=== PATIENT | male | born 1965 | race African-American/Black ===

== ENCOUNTER 2016-10-04 10:10 | Day surgery (SDC) | payer OTHER ==
[~2016-10-04] VITALS: Ht 180.3 cm; Wt 92.0 kg
[2016-10-04 11:16] VITALS: Ht 180.3 cm; Wt 92.0 kg
[2016-10-04 11:40] VITALS: BP 122/71; PULSE 58; RESP 18
[2016-10-04] MEDS ORDERED: MIDAZOLAM 1 MG/ML 2 ML INJ ONE ×2 (12:08)
[2016-10-04] MEDS ORDERED: FENTAnyl 50 MCG/ML VIAL ONE (12:08)
[2016-10-04 12:40] VITALS: BP 112/66; PULSE 91; RESP 20
--- NOTE | 2016-10-05 03:44 | GILP ---
DATE OF PROCEDURE: 10/04/2016 NAME OF PROCEDURE: Colonoscopy. SURGEON: Alcira Romero MD PREOPERATIVE DIAGNOSIS: Screening colonoscopy. POSTOPERATIVE DIAGNOSES: 1. Colonoscopy all the way to the cecum. 2. Internal hemorrhoids. 3. No colon neoplasm was identified. INDICATION FOR THE PROCEDURE: Mr. Arturo Aviles is a 51-year-old male patient who was schedul ed for screening colonoscopy. The procedure and possible complications were well explained to the patient. The patient understood and consented to the procedure. DESCRIPTION OF PROCEDURE: Under the influence of fentanyl and Versed, the colonoscope was carefully introduced in the rectum, and under direct vision, it was advanced all the way to the cecum. FINDINGS: The patient had internal hemorrhoids. No colon neoplasm was identified. He tolerated the procedure very well, and there was no complication from the procedure. At the end of the procedure, he was awake with stable vital signs, and he was discharged home to the care of hi s family. IMPRESSION: 1. Colonoscopy all the way to the cecum. 2. Internal hemorrhoids. 3. No colon neoplasm was identified. PLAN: Next screening colonoscopy in 10 years. Dictated By: ACLIRA MO/RAHAT Conf#: [id number] DID#: [id number]
== END 2016-10-04 14:09 | disposition home or self-care (01) ==
LOC: GIL 10:10
PROVIDERS: ATTEND Internal Medicine Gastroenterology
DX: Z12.11 Encounter for screening for malignant neoplasm of colon (principal); K64.8 Other hemorrhoids
CPT/HCPCS: 45378; J2250; J3010